=== PATIENT | male | born 1955 | race Caucasian/White ===

== ENCOUNTER 2023-06-10 10:40 | Emergency (ER) | payer MEDICARE, SELFPAY ==
[2023-06-10 10:47] VITALS: BP 152/77; PULSE 81; RESP 16; TEMP 36.5; O2SAT 99
--- NOTE | 2023-06-10 12:00 | W.ED.ANIMALB ---
HPI - Animal Bite General: Chief Complaint: Animal Bite Stated Complaint: tick stuck in belly button Time Seen by Provider: 06/10/23 11:44 Source: patient Mode of arrival: ambulatory History of Present Illness: 67-year-old male presents emergency room complaining of a tick embedded in his umbilicus been there for at least the last 2 days with mild localized irritation no systemic rash no fever sweats chills. Associated symptoms: Deny chills or fever(s) Review of Systems Const: Denies: fever(s) or chills Card: Denies: chest pain Resp: Denies: dyspnea GI: Denies: abdominal pain Musc: Denies: neck pain or back pain Skin/Breast: Denies: rash Physical Exam Const: COMMON NORMALS: no acute distress GENERAL APPEARANCE: cooperative and comfortable ORIENTATION/CONSCIOUSNESS: Yes awake GI: OTHER: Examination of the umbilicus there is a tick embedded deep in the umbilicus at about the 10 o'clock position. It was grasped with a pickups and removed intact. Mild localized erythema in that region no purulent drainage. Skin: COMMON NORMALS: no rashes or lesions noted GENERAL SKIN EXAM: no rashes or lesions noted Course Vital Signs: Vital signs: Vital Signs Temperature 97.7 F 06/10/23 10:47 Pulse Rate 81 06/10/23 10:47 Respiratory Rate 16 06/10/23 10:47 Blood Pressure 152/77 06/10/23 10:47 Pulse Oximetry 99 06/10/23 10:47 Oxygen Delivery Me thod Room Air 06/10/23 10:47 MDM - Animal Bite Medical Decision Making Tick removed. Recommend short course of doxycycline patient advised to follow-up with primary care if he develops a systemic rash. No radiology studies performed this visit Discharge Plan Discharge Patient Disposition: Home Clinical Impression: Tick bite of abdominal wall Condition: Stable Prescriptions: New doxycycline hyclate 100 mg capsule 100 mg PO BID 10 Days Qty: 20 0RF Discharge Orders: Discharge ED (Routine); Ordered 06/10/23 Ordered By: Ruddy Holliday Discharge Diet: Usual diet Discharge Activity: Increase activity as tolerated Patient Instructions: Opioid Safety, Pain Management Activity Restrictions/Additional Instructions: Thank you for choosing [facility] for your healthcare needs today. Please realize this is an emergency room and that we are providing you with a medical screening exam and this may not be complete and all inclusive of all the testing and or work up that you may need to determine your ailment or severity of your illness. It is very important that you follow up as instructed or that you return to the Emergency Department should you have concerns or if your condition changes or worsens in any way. Recommend that you take a short course of doxycycline. He can apply topical antibiotic ointment to the umbilicus where the tick was embedded Coding Level of Care Code ED Agriculture Extension Specialist for Jessica Gabriel
== END 2023-06-10 12:01 | disposition home or self-care (01) ==
PROVIDERS: Emergency Provider Family Medicine
DX: S30.861A Insect bite (nonvenomous) of abdominal wall, initial encounter (principal); W57.XXXA Bitten or stung by nonvenomous insect and other nonvenomous arthropods, initial encounter
CPT/HCPCS: 99283